=== PATIENT | male | born 1940 | race Asian ===

== ENCOUNTER 2021-11-30 10:30 | Outpatient (REF) | payer MEDICAID, SELFPAY ==
--- NOTE | 2021-12-01 13:59 | MHC.AU.HAS ---
Hearing Aid Evaluation Date of Visit: 11/30/21 Weft Straightener Used: Andrew Fitch-By Phone Historical Information: Description of Hearin10/26/2021 [facility] - Provided medical clearance for binuaural hearing aids Right Ear - Moderate to severe sensorineural hearing loss Left Ear - Profound sensorineural hearing loss Current personal amplification information, if applicable: None Summary: Patient is accompanied by his son. Discussed appropriate styles of hearing aids including CROS system. Speech testing could not be completed, but in questioning patient, he does not think he experiences sound sensitivity or distortion in the left ear. Patient would like to try binaural custom rechargeable hearing aids for ease of use and with face masks. Hearing Aid Prescription: Based on the individual?s shared listening needs, communication environments, dexterity, desire for connectivity, and personal preferences, the following prescription for amplification has been made: Right ear: Educational Interpreter: Relative.ai Model: Evolv AI 1600 ITE-R Battery Size: Rechargeable Color: [place] Accounts Payable Coordinator: 120/60 Left ear:Left ear prescription to be same as Right Hearing Aid above: Educational Interpreter: Relative.ai Model: Evolv AI 1600 ITE-R Battery Size: Rechargeable Color: [place] Accounts Payable Coordinator: 120/70 Plan of Care: Patient wishes to purchase hearing aids as prescribed, Earmold Impressions Taken Hearing Instrument Fitting to be scheduled when materials arrive Comments: CONTACT INTERPRETIVE SERVICES WHEN AIDS RECEIVED TO SCHEDULE AN IN PERSON CLAUDINE FITCH INSURANCE ACCOUNT MANAGER FOR THE HEARING AID FITTING APPOINTMENT. Primary Diagnosis: H90.3 Bilateral Sensorineural Hearing Loss Signature:Provider: Glendy Wilcox, CCC-A
== END 2021-11-30 10:31 | disposition home or self-care (01) ==
LOC: HO.HAP 10:30
PROVIDERS: Visit Provider Otolaryngology
DX: Z46.1 Encounter for fitting and adjustment of hearing aid (principal); H90.3 Sensorineural hearing loss, bilateral
CPT/HCPCS: 92591; V5275

== ENCOUNTER 2021-12-21 12:24 | Outpatient (REF) | payer MEDICAID, SELFPAY | END 2021-12-21 12:25 | disposition home or self-care (01) | LOC: HO.HAP 12:24 | PROVIDERS: Visit Provider Otolaryngology | DX: Z46.1 Encounter for fitting and adjustment of hearing aid (principal); H90.3 Sensorineural hearing loss, bilateral | CPT/HCPCS: V5011; V5020; V5160; V5259 ==

== ENCOUNTER 2022-01-25 12:14 | Outpatient (REF) | payer MEDICAID, SELFPAY ==
--- NOTE | 2022-01-26 11:51 | MHC.AU.HFU ---
Hearing Instrument Follow-Up- Binaural Date of Visit: 01/25/22 Sales And Marketing Director Used: Mandarin [place] Citizen by Phone Right Ear: Welding Machine Operator Resistance: David Model: Evolv AI 1600 ITE-R Serial Number: [id number] Repair Warranty: 01/06/2025 Loss and Damage Warranty: 01/06/2025 Battery Size: Rechargeable Color: [place] Creative Designer: 120/60 Type of Wax Guard: HearClear Dispensed By: [facility] Date of Fittin12/21/2021 Left Ear: Welding Machine Operator Resistance: David Model: Evolv AI 1600 ITE-R Serial Number: [id number] Repair Warranty: 01/06/2025 Loss and Damage Warranty: 01/06/2025 Battery Size: Rechargeable Color: [place] Creative Designer: 120/70 Type of Wax Guard: HearClear Dispensed By: [facility] Date of Fittin12/21/2021 Follow-Up Summary: 2 week follow-up - Patient has not been using the hearing aids as they are causing headaches. Son is concerned patient is playing with the volume control and making it louder. Datalogging shows 2 hours average wearing time. Decreased overall gain 4 dB with patient reporting more comfortable sound while in the office. Deactivated volume control and push button and counseled son and patient he will not be able to change anything to do with the sound of the aids. Patient is very interested in ROGER style aids like his has. He thinks they would be easier to use. Had patient insert the ITC-R aids several times today and he is able to insert the aids well. Set up a [place] David ROGER and had patient practice insertion. He had more difficulty with insertion. Also discussed how with the degree of hearing loss he would need AP earmolds (he likes the that the domes of his 's aids are not seen). I strongly advise patient to stay with the ITC-R style for ease of use. Recommendations: Scheduled F/U for 02/15/22. If patient is doing well, they will cancel the appointment.If patient really wants to try ROGER style with AP molds, we will order at that visit. Diagnosis Code(s): Primary Diagnosis: H90.3 Bilateral Sensorineural Hearing Loss Signature: Provider: Glendy Wilcox, [facility]
== END 2022-01-25 12:15 | disposition home or self-care (01) ==
LOC: HO.HAP 12:14
PROVIDERS: Visit Provider Otolaryngology
DX: Z13.89 Encounter for screening for other disorder (principal)

== ENCOUNTER 2022-02-15 12:25 | Outpatient (REF) | payer MEDICAID, SELFPAY ==
--- NOTE | 2022-02-15 13:57 | MHC.AU.HFU ---
Hearing Instrument Follow-Up- Binaural Date of Visit: 02/15/22 Clinical Practice Consultant Used: Son translated Florentino Brazilian dialect Right Ear: Radial Drill Operator: David Model: Evolv AI 1600 ITE-R Serial Number: [id number] Repair Warranty: 01/06/2025 Loss and Damage Warranty: 01/06/2025 Battery Size: Rechargeable Color: [place] Director Of Product Design: 120/60 Type of Wax Guard: HearClear Dispensed By: [facility] Date of Fittin12/21/2021 Left Ear: Radial Drill Operator: David Model: Evolv AI 1600 ITE-R Serial Number: [id number] Repair Warranty: 01/06/2025 Loss and Damage Warranty: 01/06/2025 Battery Size: Rechargeable Color: [place] Director Of Product Design: 120/70 Type of Wax Guard: HearClear Dispensed By: [facility] Date of Fittin12/21/2021 Follow-Up Summary: Hearing Aid Follow-up - Patient and his son report the right aid is not working and the left is weak. Both wax guards blocked with cerumen. Showed how to change wax guard and son performed the change while in office. Patient is concerned about the wax blocking the aids and how the aids completely block his ears. He wants to try to the ROGER style aids with small domes like his has. Extensively counseled that with the degree of hearing loss he has, he will not benefit from the ROGER style with domes like his does. He will likely have problems with wax blocking no matter which style he uses and will need to handle 2 parts of the aid for insertion which he had trouble with last visit. I continue to strongly advise staying with the ITE-R hearing aids. Scheduled another appointment for 03/01/22. Called [facility], they cannot extend the trial beyond 03/07/22. If patient wants to try the ROGER-R aids with AP molds will need to RFC the ITE-R aids. Diagnosis Code(s):Primary Diagnosis: H90.3 Bilateral Sensorineural Hearing Loss Signature:Provider: Christel Wilcox, [facility]
== END 2022-02-15 12:26 | disposition home or self-care (01) ==
LOC: HO.HAP 12:25
PROVIDERS: Visit Provider Otolaryngology
DX: Z13.89 Encounter for screening for other disorder (principal)